=== PATIENT | female | born 1975 | race African-American/Black ===

== ENCOUNTER 2017-02-21 08:00 | Outpatient (CLI) | payer OTHER | END 2017-02-21 08:01 | disposition home or self-care (01) | LOC: BICMRI 08:00 | PROVIDERS: ATTEND Family Medicine | DX: M54.16 Radiculopathy, lumbar region (principal) | CPT/HCPCS: 72148 ==

== ENCOUNTER 2017-11-07 08:41 | Outpatient (CLI) | payer OTHER ==
[2017-11-07] MEDS ORDERED: ISOVUE-370 76%-LOCM 1 ML ONE (12:03)
--- NOTE | 2017-11-07 12:30 | CT ---
CONTRAST ENHANCED CT IMAGES ABDOMEN AND PELVIS: HISTORY: Previous cholecystectomy in July, right upper quadrant pain and nausea. FINDINGS: Contrast-enhanced CT images of the abdomen and pelvis obtained. The lung bases are unremarkable. No evidence of free intraperitoneal air is seen. The liver and spleen are unremarkable. The gallbladder has been surgically removed. The pancreas is unremarkable. Adrenal glands unremarkable. The kidneys are unremarkable. No dilated loops of smal l bowel seen. The colon demonstrates some areas of sigmoid colonic thickening. This may represent diverticulitis o r possible sigmoid colonic mass. Correlate with direct visualization. Bilateral ovarian cyst or cystic lesions also present. IMPRESSION: Segment of sigmoid colonic thickening concerning for diverticulitis or colitis or colonic malignancy. Correlate with direct visualization. POS: ADAM
== END 2017-11-07 08:42 | disposition home or self-care (01) ==
LOC: BICCT 08:41
PROVIDERS: ATTEND Family Medicine
DX: R10.11 Right upper quadrant pain (principal); K63.89 Other specified diseases of intestine
CPT/HCPCS: 74177

== ENCOUNTER 2018-07-20 16:12 | Inpatient (IN) | payer OTHER ==
[2018-07-20 17:42] LABS: Hemoglobin 10.5 g/dL (12.0-16.0); Mean Corpuscular HGB CONC 30.3 g/dL (32.0-36.0); Mean Corpuscular Hemoglobin 20.2 pg (27.0-31.0); Mean Corpuscular Volume 66.5 fL (78.0-98.0); Mean Platelet Volume 10.3 fL (7.4-10.4); Platelet Count 493 thou/uL (130-400); RBC Distribution Width 18.7 % (11.5-14.5); Red Blood Cell (RBC) Count 5.23 mill/uL (4.20-5.40); White Blood Cell (WBC) Count 10.3 thou/uL (4.8-10.8)
[2018-07-20 17:43] LABS: Bilirubin Small (Negative); Blood, Urine Negative (Negative); Clarity CLEAR (Clear); Glucose, Urine (Dipstick) Negative (Negative); Leukocyte Negative (Negative); Nitrite Negative (Negative); Protein, Urine (Dipstick) Negative (Neg-Trace); Specific Gravity, Urine 1.027 (1.002-1.036)
[2018-07-20 17:43] LABS: #Basophils 0.1 thou/uL (0.0-0.2); #Eosinphils 0.1 thou/uL (0.0-0.7); #Lymphocytes 2.6 thou/uL (1.20-3.40); #Monocytes 0.8 thou/uL (0.11-0.59); #Neutrophils 6.6 thou/uL (1.40-6.50); %Basophils 0.7 % (0.0-1.0); %Eosinophils 1.2 % (0.0-10.0); %Lymphocytes 25.6 % (21.0-51.0); %Neutrophils 64.4 % (42.0-75.0)
[2018-07-20 17:47] LABS: Pregnancy Test - Urine (BHCG) Negative (Negative); Pregu Control Background? CLEAR/WHITE (CLR/WHITE); Pregu Control Bar Appear? YES (CONTROL BAR); Specific Gravity 1.027 (1.002-1.036)
[2018-07-20 18:00] LABS: Hypochromia MODERATE=16-30 cells (100X) (0-5/hpf); MDiff Complete? YES; Microcytosis SLIGHT = 6-15 cells (100X) (0-5/hpf); Ovalocytes SLIGHT = 2-5 cells (100X) (0-1/hpf); Platelet Morphology Comment Appears Increased; Polychromasia SLIGHT = 2-3 cells (100X) (0-2/hpf); Reflex for Review?? YES; Stomatocytes SLIGHT = 2-5 cells (100X) (0-1/hpf); Target Cells SLIGHT = 2-5 cells (100X) (0-1/hpf)
[2018-07-20 18:08] LABS: ALT (SGPT) 14 U/L (8-55); AST (SGOT) 14 U/L (5-34); Albumin 4.2 g/dL (3.5-5.0); Alkaline Phosphatase 53 U/L (40-150); Anion Gap 15 mmol/L (10-20); BUN (Urea Nitrogen) 8 mg/dL (7.0-18.7); Bilirubin, Total 0.8 mg/dL (0.2-1.2); Calc. Creatinine Clearance 0 mL/min (70-130); Calcium 9.9 mg/dL (7.8-10.44); Carbon Dioxide 20 mmol/L (22-29); Chloride 104 mmol/L (98-107); Estimated GFR-MDRD Greater than 90; Globulin 3.8 g/dL (2.4-3.5); Glucose 89 mg/dL (70-105); Lipase 64 U/L (8-78); Potassium 3.7 mmol/L (3.5-5.1); Sodium 135 mmol/L (136-145)
--- NOTE | 2018-07-20 18:18 | CT ---
CT Stone Protocol 07/20/2018 5:09 PM HISTORY: Constipation for one week. History of diverticulitis. COMPARISON: Prior contrasted CT abdomen and pelvis on 11/07/2017. Technique: Multiple contiguous axial CT images are obtained through the abdomen and pelvis without IV contrast. Coronal reformats are provided. FINDINGS: This examination is limited for the evaluation of solid organs and vascular structures due to the lac k of intravenous contrast. Lower Chest: within normal limits. Abdomen: Liver: within normal limits. Gallbladder: Postcholecystectomy changes. Pancreas: within normal limits. Spleen: within normal limits. Adrenals: within normal limits. Kidneys: No renal calculi are visualized, and there is no evidence of hydronephrosis. Ureters: No ureteral calculus is seen.. Pelvis: Urinary bladder: Decompressed. Reproductive Organs: Grossly within normal limits for nonenhanced CT appearance. Lymph Nodes: No enlarged lymph nodes. Bowel: There is focal thickening involving the sigmoid colon. There are several colonic diverticuli s een in this region with adjacent pericolonic inflammatory changes. Findings are likely related to diverticulitis, but follow-up evaluation is recommended to ensure resolution of the colonic wall thic kening. Additional scattered colonic diverticula are seen within the colon. Appendix: Not visualized on this exam. Peritoneum: Tiny amount of free fluid is seen in the pelvis. Retroperitoneum: within normal limits. Vessels: Abdominal aorta is normal in caliber.. Abdominal Wall: within normal limits. Bones: Postsurgical changes of each femur are again noted. Mild degenerative changes in the spine are present. IMPRESSION: 1. Findings likely attributable to diverticulitis involving the sigmoid colon. However, this is diffi cult to further evaluate without IV contrast. Follow-up evaluation is recommended to ensure resolution of the colonic wall thickening and pericolonic inflammatory changes in this region. No adj acent free intraperitoneal gas or fluid collection is seen. 2. Tiny amount of free fluid in the pelvis. 3. Postcholecystectomy changes.
[2018-07-20] MEDS ORDERED: Morphine 4 MG/ML VIAL ONE ×2 (20:20→21:10)
[2018-07-20] MEDS ORDERED: metroNIDAZOLE 500 MG/100 ML BAG ONE (20:20)
[2018-07-20] MEDS ORDERED: Ondansetron PF 4 MG/2 ML Vial ONE (20:20)
[2018-07-20] MEDS ORDERED: Ondansetron ODT 4 MG TAB SL PRN (22:57)
[2018-07-20] MEDS: Morphine 4 MG/ML VIAL SLOW IVP PRN (23:10)
[2018-07-20] MEDS: Sodium Chloride 0.9% 1,000 ML IV SCH (23:12)
[2018-07-21] MEDS ORDERED: FLUoxetine HCl 10 MG CAP PO SCH (00:30)
[2018-07-21] MEDS: Ondansetron PF 4 MG/2 ML Vial IVP PRN ×2 (00:56→06:28)
[2018-07-21] MEDS ORDERED: metroNIDAZOLE 500 MG in Premix Bag 1 BAG IVPB SCH ×2 (04:00→10:00)
[2018-07-21] MEDS: Sodium Chloride 0.9% 1,000 ML IV SCH ×2 (06:20→10:24)
[2018-07-21] MEDS: Morphine 4 MG/ML VIAL SLOW IVP PRN ×3 (06:24→21:22)
[2018-07-21] MEDS ORDERED: Acetaminophen 325 MG TAB PO PRN (08:28)
[2018-07-21] MEDS ORDERED: Non-Formulary Item 1 EACH (Omeprazole [Omeprazole] 20 MG) PO SCH (09:00)
[2018-07-21] MEDS: Enoxaparin Sodium 40 MG/0.4 ML SYRINGE SC SCH (09:48)
[2018-07-21] MEDS ORDERED: traMADol HCl 50 MG TAB PO PRN (11:14)
[2018-07-21] MEDS ORDERED: Bisacodyl 5 MG TAB PO SCH (11:15)
[2018-07-21] MEDS: HYDROcodone/Acetaminophen 5/325 mg Tablet PO PRN (12:43)
[2018-07-21] MEDS: FLUoxetine HCl 10 MG CAP PO SCH (13:11)
[2018-07-21] MEDS: Loratadine 10 MG TAB PO SCH (13:11)
[2018-07-21] MEDS: metroNIDAZOLE 500 MG in Premix Bag 1 BAG IVPB SCH ×2 (14:39→21:23)
[2018-07-21 14:46] VITALS: BMI 41.3
[2018-07-21 15:51] LABS: Reticulocyte Count 1.6 % (0.5-1.5)
[2018-07-21 16:07] LABS: Iron 18 ug/dL (50-170); Iron Binding Capacity, Total 446 mcg/dL (265-497)
--- NOTE | 2018-07-21 17:06 | HP ---
CHIEF COMPLAINT: Nausea, vomiting, and abdominal pain. HISTORY OF PRESENT ILLNESS: The patient is a 42-year-old female with past medical history of depression, who presents to the hospital with complaints of abdominal pain x2 days. The patient stated that since she has had her gallbladder removed, which was sometimes last year, she has been having issues with constipation. The patient stated that her last bowel movement was about a week ago. The patient states that she has been passing gas. However, on July 16, started having significant amounts of abdominal pain. The patient then stated that since she is school, she did not want to miss her exams, so she took [id number] medications to help her abdominal pain. The patient also states that she took 2 packets of her MiraLAX and also took 2 Senokot hoping that her abdominal pain would improve or she would have a bowel movement. However, the patient states that the reason she came into the hospital, she started to have nausea, vomiting, and she was unable to hold anything down. The patient denies any fevers or chills. When the patient had diverticulosis last time, her symptoms were similar to her current presentation, so she came to the ER for further evaluation. She was last time asked to follow up with GI, which she did not due to being dizzy at school. PAST MEDICAL HISTORY: She has a history of allergies, depression, GERD, and also constipation. PAST SURGICAL HISTORY: She has had cholecystectomy. SOCIAL HISTORY: She smokes half a pack a day. Denies any alcohol use or drug use. REVIEW OF SYSTEMS: All negative except for the ones mentioned above in the HPI. FAMILY HISTORY: Significant for cancer on both sides. ALLERGIES: SHE IS ALLERGIC TO ACETAMINOPHEN, DOXYCYCLINE, HYDROCODONE, AND IBUPROFEN. MEDICATIONS: She takes, 1. Fluoxetine. 2. Claritin. PHYSICAL EXAMINATION: VITAL SIGNS: Temperature of 98.7, pulse 76, respiratory rate 18, oxygen saturation 98% on room air, and blood pressure 121/61. GENERAL: She is awake, alert, and oriented x3. Does not appear in any distress. CARDIOVASCULAR: S1 and S2 present. No murmurs, rubs, or gallops. LUNGS: Clear to auscultation. No rhonchi or wheezes noted. ABDOMEN: Soft. Bowel sounds are present x2. Pain upon palpation all around her abdomen area. EXTREMITIES: No edema. Pedal pulses are present x2. NEUROVASCULAR: There are no focal deficits noted. SKIN: No cuts, lesions, or bruises noted. LABORATORY RESULTS: WBCs of 10.3, hemoglobin of 10.5, hematocrit of 34.8, and platelets of 493. Chemistries; sodium of 135, potassium of 3.7, BUN of 8, and creatinine of 0.74. TSH is 0.8. She did have a CT of abdomen and pelvis, which indicated diverticulitis involving the sigmoid colon, however, there was no IV contrast that was used. She also recommended a followup scan to see the resolution of colonic wall thickening. ASSESSMENT AND PLAN: The patient is a 42-year-old female, who presents to the hospital with abdominal pain and nausea and vomiting. 1. Diverticulitis. The patient does not have significant leukocytosis. I will start her on Cipro and Flagyl. She has that diverticulitis in the past. However, never followed up with GI. According to her, she does eat a healthy diet and feels that her constipation has been since she has had a cholecystectomy. Her TSH is stable. I did encourage her to eat more high-fiber diet. She does have significant amount of diverticulosis in her colon and she has not had any bowel movement for about a week. I will also start her on some stool softeners and also we will give her some stimulants to see if she can have a bowel movement. I will also start her on some gentle hydration and put her on clear liquids and advance as tolerated. 2. Anemia, microcytic. I will check her iron studies. 3. Deep venous thrombosis prophylaxis. We will put the patient on some SCDs. Job ID: [id number]
[2018-07-22] MEDS: HYDROcodone/Acetaminophen 5/325 mg Tablet PO PRN ×2 (04:14→10:42)
[2018-07-22] MEDS: Sodium Chloride 0.9% 1,000 ML IV SCH (04:15)
[2018-07-22] MEDS: metroNIDAZOLE 500 MG in Premix Bag 1 BAG IVPB SCH ×3 (05:19→23:57)
[2018-07-22] MEDS: Loratadine 10 MG TAB PO SCH (05:22)
[2018-07-22 06:28] LABS: Hemoglobin 8.7 g/dL (12.0-16.0); Mean Corpuscular HGB CONC 29.7 g/dL (32.0-36.0); Mean Corpuscular Hemoglobin 20.2 pg (27.0-31.0); Mean Platelet Volume 10.1 fL (7.4-10.4); Platelet Count 384 thou/uL (130-400); RBC Distribution Width 18.6 % (11.5-14.5); Red Blood Cell (RBC) Count 4.32 mill/uL (4.20-5.40); White Blood Cell (WBC) Count 7.8 thou/uL (4.8-10.8)
[2018-07-22 06:34] LABS: Anion Gap 12 mmol/L (10-20); BUN (Urea Nitrogen) 5 mg/dL (7.0-18.7); Calc. Creatinine Clearance 207 mL/min (70-130); Calcium 8.4 mg/dL (7.8-10.44); Carbon Dioxide 23 mmol/L (22-29); Chloride 104 mmol/L (98-107); Estimated GFR-MDRD Greater than 90; Glucose 99 mg/dL (70-105); Potassium 3.3 mmol/L (3.5-5.1); Sodium 136 mmol/L (136-145)
[2018-07-22 06:50] LABS: #Eosinphils 0.1 thou/uL (0.0-0.7); #Lymphocytes 1.8 thou/uL (1.20-3.40); #Monocytes 0.7 thou/uL (0.11-0.59); #Neutrophils 5.2 thou/uL (1.40-6.50); %Basophils 0.5 % (0.0-1.0); %Eosinophils 1.6 % (0.0-10.0); %Lymphocytes 22.8 % (21.0-51.0); %Monocytes 8.5 % (0.0-10.0); %Neutrophils 66.6 % (42.0-75.0)
[2018-07-22] MEDS: FLUoxetine HCl 10 MG CAP PO SCH (08:19)
[2018-07-22] MEDS: Pantoprazole 40 MG VIAL IVP SCH (08:19)
[2018-07-22] MEDS: Enoxaparin Sodium 40 MG/0.4 ML SYRINGE SC SCH (08:19)
[2018-07-22] MEDS ORDERED: Potassium Chloride 20 MEQ TAB PO SCH (08:45)
[2018-07-22] MEDS ORDERED: Acetaminophen 325 MG TAB PO PRN (17:42)
--- NOTE | 2018-07-22 20:11 | PDOC.PN ---
- Subjective Encounter Start Date: 07/22/18 Encounter Start Time: 11:45 Subjective: pt up in bed feels much better today - Objective Resuscitation Status - Order Detail: 07/21/18 08:28 Resuscitation Status Routine Resuscitation Status: FULL: Full Resuscitation Vital Signs & Weight: Vital Signs (12 hours) Temp Pulse Resp BP BP Pulse Ox 07/22/18 16:20 97.9 F 75 18 111/74 98 07/22/18 12:32 98.1 F 75 18 125/79 98 Weight Admit Weight 279 lb 15.793 oz Weight 279 lb 15.793 oz I&O: 07/21/18 07/22/18 07/23/18 06:59 06:59 06:59 Intake Total 1050 1280 Balance 1050 1280 Result Diagrams: 07/22/18 05:46 07/22/18 05:46 Phys Exam - Physical Examination Neck: no nodes, no JVD, supple, full ROM Respiratory: no wheezing, no rales, no rhonchi, wheezing present, clear to auscultation bilateral Cardiovascular: RRR, no significant murmur, no rub, gallop, irregular Gastrointestinal: soft, non-tender, no distention, positive bowel sounds Dx/Plan (1) Diverticulitis Code(s): K57.92 - DVTRCLI OF INTEST, PART UNSP, W/O PERF OR ABSCESS W/O BLEED Status: Acute (2) Nausea & vomiting Code(s): R11.2 - NAUSEA WITH VOMITING, UNSPECIFIED Status: Acute (3) Obesity Code(s): E66.9 - OBESITY, UNSPECIFIED Status: Acute - Plan pt had a large bowel movement -: she feels better. will continue abx for now * . Review of Systems - Review of Systems Respiratory: negative: Cough, Dry, Shortness of Breath, Hemoptysis, SOB with Excertion, Pleuritic Pain, Sputum, Wheezing Cardiovascular: negative: chest pain, palpitations, orthopnea, paroxysmal nocturnal dyspnea, edema, light headedness, other - Medications/Allergies Allergies/Adverse Reactions: Allergies Allergy/AdvReac Type Severity Reaction Status Date / Time acetaminophen [From Vicodin] Allergy Verified 07/20/18 22:58 doxycycline Allergy Verified 07/20/18 22:58 hydrocodone bitartrate Allergy Verified 07/20/18 22:58 [From Vicodin] ibuprofen Allergy Verified 07/20/18 22:58 Medications: Current Medications Acetaminophen (Tylenol) 650 mg PO Q6H PRN PRN Reason: Headache/Fever or Pain Hydrocodone Bitart/Acetaminophen ([place] 5/325) 1 tab PO Q6H PRN PRN Reason: Mild-Moderate Pain (1-5) Last Admin: 07/22/18 10:42 Dose: 1 tab Enoxaparin Sodium (Lovenox) 40 mg SC 0900 [facility] Last Admin: 07/22/18 08:19 Dose: 40 mg Fluoxetine HCl (Prozac) 10 mg PO DAILY [facility] Last Admin: 07/22/18 08:19 Dose: 10 mg Sodium Chloride (Normal Saline 0.9%) 1,000 mls @ 50 mls/hr IV .Q20H [facility] Last Admin: 07/22/18 04:15 Dose: 1,000 mls Ciprofloxacin/Dextrose 400 mg/ (Device) 200 mls @ 200 mls/hr IVPB Q12HR [facility] Last Admin: 07/22/18 08:18 Dose: 200 mls Metronidazole 500 mg/ Device 100 mls @ 100 mls/hr IVPB 0600,1400,2200 [facility] Last Admin: 07/22/18 14:17 Dose: 100 mls Loratadine (Claritin) 10 mg PO DAILY [facility] Last Admin: 07/22/18 05:22 Dose: 10 mg Morphine Sulfate (Morphine) 2 mg SLOW IVP Q6H PRN PRN Reason: Mild-Moderate Pain (1-5) Last Admin: 07/21/18 21:22 Dose: 2 mg Pantoprazole Sodium (Protonix) 40 mg IVP DAILY [facility] Last Admin: 07/22/18 08:19 Dose: 40 mg Sodium Chloride (Flush - Normal Saline) 10 ml IVF PRN PRN PRN Reason: Saline Flush
[2018-07-23] MEDS: Ciprofloxacin 500 MG TAB PO SCH ×3 (00:25→23:45)
[2018-07-23] MEDS: metroNIDAZOLE 500 MG TAB PO SCH ×3 (08:19→20:17)
[2018-07-23] MEDS: Enoxaparin Sodium 40 MG/0.4 ML SYRINGE SC SCH (08:19)
[2018-07-23] MEDS: Loratadine 10 MG TAB PO SCH (08:19)
[2018-07-23] MEDS: FLUoxetine HCl 10 MG CAP PO SCH (08:19)
[2018-07-23] MEDS: Pantoprazole 40 MG VIAL IVP SCH (08:22)
[2018-07-23] MEDS: HYDROcodone/Acetaminophen 5/325 mg Tablet PO PRN ×2 (10:57→15:39)
--- NOTE | 2018-07-23 11:33 | CON ---
DATE OF CONSULTATION: 07/22/2018 REASON FOR CONSULTATION: Abdominal pain. HISTORY OF PRESENT ILLNESS: Mrs. Carballo is a 42-year-old female who was admitted to the hospital with a 4-to 5-day history of persistent abdominal pain. The pain initially started in the lower abdomen, but gradually has been involving the entire abdomen, but still localized in the lower part below the umbilicus. She did have some initial nausea, but no vomiting. She denies of any fever at home. She initially did have some constipation and took some MiraLAX and Senokot to achieve bowel movement. Because of the unrelenting and persistent pain, she presents to the ER for evaluation. A CT performed demonstrated evidence of sigmoid inflammation and pericolonic inflammation in that area suggestive of diverticulitis. She had similar bouts of pain last year in [place], but apparently was a gallbladder issue that resulted in a cholecystectomy. PAST MEDICAL HISTORY: 1. Status post cholecystectomy. 2. No other medical illness or surgery. ALLERGIES: DOXYCYCLINE, HYDROCODONE, IBUPROFEN, ACETAMINOPHEN. MEDICATIONS: Include; 1. Claritin. 2. Fluoxetine. SOCIAL HISTORY: The patient has a son currently in school. She does smoke a pack every 2 days and occasional alcohol. FAMILY HISTORY: Father with diverticulitis. Otherwise negative for any other GI problem, liver disease, or GI malignancy. REVIEW OF SYSTEMS: Ten-point review of systems negative for any other pertinent positives or negatives. PHYSICAL EXAMINATION: VITAL SIGNS: Temperature is 97.9, blood pressure 111/74, pulse is 75. GENERAL: She is alert, conversant, no distress. HEENT: Show anicteric sclerae. Oropharynx is clear. NECK: Supple. CV: Shows normal S1, S2. Regular rate and rhythm. CHEST: Shows a breath sound. ABDOMEN: Protuberant. Organomegaly cannot be assessed secondary to size. She does have tenderness below the umbilicus and also in the left lower quadrant. No guarding or rebound. She has active bowel sounds. EXTREMITIES: Show no edema. LABORATORY DATA: WBC 7.8, hemoglobin 8.7, MCV of 68, and platelet count of 384. Electrolytes within normal range. Creatinine 0.71. Iron 18, TIBC 446, percent saturation is 4. IMAGING: Abdomen and pelvic CT showed evidence of sigmoid inflammation with pericolonic inflammation with diverticula. No abscess, fluid collection, or phlegmon. ASSESSMENT: 1. Uncomplicated diverticulitis, clinically resolving with less pain. Currently on appropriate antibiotics. 2. Microcytic anemia with evidence of iron deficiency. Likely from menses. Dietary component may be a contributing factor as the patient has been on a diet for the last 5 months. No evidence of gastrointestinal blood loss. RECOMMENDATION: 1. Continue with Cipro and metronidazole IV. 2. The patient tolerates full liquid diet today, can be advanced to regular diet. If she continues to do well, can be discharged to home in 1 to 2 days on oral Cipro and metronidazole x10 days. 3. Follow up outpatient in 2 to 3 weeks. Eventual colonoscopy will be planned once her diverticulitis resolved. 4. We will start oral iron supplement once her diverticulitis resolved. 5. We will follow in the meantime. Job ID: [id number] [facility]
--- NOTE | 2018-07-23 13:05 | PRG ---
DATE OF SERVICE: 07/23/2018 SUBJECTIVE: The patient feels better today. She rated her abdominal pain as 6/10 relative to 10/10 on admission. She is tolerating regular diet without nausea or vomiting. She did have a small bowel movement this morning. OBJECTIVE: VITAL SIGNS: Temperature is 98.3, blood pressure 106/71, and pulse is 74. GENERAL: She is alert and conversant, no distress. HEENT: Exam shows anicteric sclerae. Oropharynx clear. CV: Shows normal S1 and S2. Regular rate and rhythm. CHEST: Shows a breath sound. ABDOMEN: Protuberant, but soft. braiding machine tender below the umbilicus. No guarding or rebound. EXTREMITIES: Shows no edema. LABORATORY DATA: No labs today. ASSESSMENT: 1. Uncomplicated diverticulitis, clinically better. 2. Microcytic anemia, likely related to her menstruation. The patient has noted more menses in the last 2 months. RECOMMENDATION: 1. I would continue to keep patient one more day on IV antibiotics, anticipate discharge tomorrow on oral Cipro and metronidazole. 2. Eventual outpatient colonoscopy. 3. We will check some iron parameters. Would avoid oral iron for now as this can be constipating. Can use iron supplement after diverticulitis resolves. 4. We will follow. Job ID: [id number]
--- NOTE | 2018-07-23 14:04 | PDOC.PN ---
- Subjective Encounter Start Date: 07/23/18 Encounter Start Time: 10:15 Subjective: pt up in bed complains of abd pain - Objective Resuscitation Status - Order Detail: 07/21/18 08:28 Resuscitation Status Routine Resuscitation Status: FULL: Full Resuscitation Vital Signs & Weight: Vital Signs (12 hours) Temp Pulse Resp BP BP Pulse Ox 07/23/18 07:29 98.3 F 74 16 106/71 96 07/23/18 04:00 98.2 F 80 18 118/75 99 Weight Admit Weight 279 lb 15.793 oz Weight 279 lb 15.793 oz I&O: 07/22/18 07/23/18 07/24/18 06:59 06:59 06:59 Intake Total 1280 Balance 1280 Result Diagrams: 07/22/18 05:46 07/22/18 05:46 Phys Exam - Physical Examination Neck: no nodes, no JVD, supple, full ROM Respiratory: no wheezing, no rales, no rhonchi, wheezing present, clear to auscultation bilateral Cardiovascular: RRR, no significant murmur, no rub, gallop, irregular Gastrointestinal: soft, positive bowel sounds mild tenderness all over Dx/Plan (1) Diverticulitis Code(s): K57.92 - DVTRCLI OF INTEST, PART UNSP, W/O PERF OR ABSCESS W/O BLEED Status: Acute (2) Nausea & vomiting Code(s): R11.2 - NAUSEA WITH VOMITING, UNSPECIFIED Status: Acute (3) Obesity Code(s): E66.9 - OBESITY, UNSPECIFIED Status: Acute - Plan will give iv iron, pt is a hard stick abx change to oral -: possible discharge in am * . Review of Systems - Review of Systems Respiratory: negative: Cough, Dry, Shortness of Breath, Hemoptysis, SOB with Excertion, Pleuritic Pain, Sputum, Wheezing Cardiovascular: negative: chest pain, palpitations, orthopnea, paroxysmal nocturnal dyspnea, edema, light headedness, other Gastrointestinal: Abdominal Pain - Medications/Allergies Allergies/Adverse Reactions: Allergies Allergy/AdvReac Type Severity Reaction Status Date / Time acetaminophen [From Vicodin] Allergy Verified 07/20/18 22:58 doxycycline Allergy Verified 07/20/18 22:58 hydrocodone bitartrate Allergy Verified 07/20/18 22:58 [From Vicodin] ibuprofen Allergy Verified 07/20/18 22:58 Medications: Current Medications Acetaminophen (Tylenol) 650 mg PO Q6H PRN PRN Reason: Headache/Fever or Pain Last Admin: 07/23/18 04:30 Dose: 650 mg Hydrocodone Bitart/Acetaminophen ([place] 5/325) 1 tab PO Q6H PRN PRN Reason: Mild-Moderate Pain (1-5) Last Admin: 07/23/18 10:57 Dose: 1 tab Ciprofloxacin (Cipro) 500 mg PO Q12H [facility] Last Admin: 07/23/18 10:56 Dose: 500 mg Enoxaparin Sodium (Lovenox) 40 mg SC 0900 [facility] Last Admin: 07/23/18 08:19 Dose: 40 mg Fluoxetine HCl (Prozac) 10 mg PO DAILY [facility] Last Admin: 07/23/18 08:19 Dose: 10 mg Iron Sucrose 200 mg/ Sodium (Chloride) 260 mls @ 125 mls/hr IVPB ONE [facility] Loratadine (Claritin) 10 mg PO DAILY [facility] Last Admin: 07/23/18 08:19 Dose: 10 mg Metronidazole (Flagyl) 500 mg PO TID [facility] Last Admin: 07/23/18 08:19 Dose: 500 mg Morphine Sulfate (Morphine) 2 mg SLOW IVP Q6H PRN PRN Reason: Mild-Moderate Pain (1-5) Last Admin: 07/21/18 21:22 Dose: 2 mg Naproxen (Naprosyn) 500 mg PO BID PRN PRN Reason: Mild-Moderate Pain (1-5) Pantoprazole Sodium (Protonix) 40 mg PO DAILY [facility] Sodium Chloride (Flush - Normal Saline) 10 ml IVF PRN PRN PRN Reason: Saline Flush
[2018-07-23] MEDS ORDERED: Iron Sucrose Complex 200 MG in Sodium Chloride 0.9% 250 ML 250 ML IVPB SCH (14:15)
[2018-07-23] MEDS ORDERED: Iron, Sodium Ferric Gluconate 250 MG in Sodium Chloride 0.9% 100 ML IVPB SCH (14:30)
[2018-07-23] MEDS: Naproxen 500 MG TAB PO PRN (20:17)
[2018-07-24 05:45] LABS: Hemoglobin 9.1 g/dL (12.0-16.0); Mean Corpuscular HGB CONC 30.2 g/dL (32.0-36.0); Mean Corpuscular Hemoglobin 20.4 pg (27.0-31.0); Mean Corpuscular Volume 67.8 fL (78.0-98.0); Platelet Count 403 thou/uL (130-400); RBC Distribution Width 18.8 % (11.5-14.5); Red Blood Cell (RBC) Count 4.44 mill/uL (4.20-5.40); White Blood Cell (WBC) Count 7.2 thou/uL (4.8-10.8)
[2018-07-24 06:03] LABS: Iron 11 ug/dL (50-170); Iron Binding Capacity, Total 361 mcg/dL (265-497)
[2018-07-24 07:40] VITALS: BP 110/75; TEMP 98.2
[2018-07-24] MEDS: Loratadine 10 MG TAB PO SCH (08:29)
[2018-07-24] MEDS: FLUoxetine HCl 10 MG CAP PO SCH (08:29)
[2018-07-24] MEDS: metroNIDAZOLE 500 MG TAB PO SCH (08:29)
[2018-07-24] MEDS: Enoxaparin Sodium 40 MG/0.4 ML SYRINGE SC SCH (08:29)
[2018-07-24] MEDS: Naproxen 500 MG TAB PO PRN (09:53)
[2018-07-24] MEDS: Ciprofloxacin 500 MG TAB PO SCH (12:56)
== END 2018-07-24 13:49 | disposition home or self-care (01) | DRG 392 ==
LOC: ERS 16:12 → 3SE 22:53 → T4-A 07-21 17:33
PROVIDERS: ADMIT Internal Medicine; ATTEND Internal Medicine
DX: K57.92 Diverticulitis of intestine, part unspecified, without perforation or abscess without bleeding (principal); Z68.41 Body mass index [BMI] 40.0-44.9, adult; E66.9 Obesity, unspecified; F32.9 Major depressive disorder, single episode, unspecified; K21.9 Gastro-esophageal reflux disease without esophagitis; K59.00 Constipation, unspecified; D50.9 Iron deficiency anemia, unspecified; Z90.49 Acquired absence of other specified parts of digestive tract; Z88.8 Allergy status to other drugs, medicaments and biological substances; Z88.1 Allergy status to other antibiotic agents; Z88.6 Allergy status to analgesic agent; Z79.899 Other long term (current) drug therapy
CPT/HCPCS: 36415; 74176; 80048; 80053; 81003; 81025; 82728; 83540; 83550; 83690; 84443; 85025; 85027; 85046; 85060; 96365; 96367; 96375; 96376; J0744; J1650; J2270; J2405; J2916; J3490

== ENCOUNTER 2018-09-09 13:27 | Outpatient (CLI) | payer OTHER ==
--- NOTE | 2018-09-09 14:39 | ULT ---
Pelvic ultrasound: 09/09/2018 COMPARISON: None HISTORY: Excessive bleeding TECHNIQUE: Multiplanar grayscale sonographic imaging of the pelvis obtained with transabdominal and e ndovaginal imaging. Doppler assessment of the left ovary performed with color flow and spectral analysis. Findings: The right ovary could not be visualized on this exam. The uterus measures 8.0 x 3.7 x 4.1 cm. No uterine mass is identified. The endometrial stripe measure s 3 mm, within normal limits. No free pelvic fluid is seen. Left ovary measures 1.6 x 1.8 x 1.8 cm in demonstrates normal blood flow without evidence for mass. IMPRESSION: Unremarkable pelvic ultrasound. The right ovary could not be visualized on this exam.
--- NOTE | 2018-09-09 15:54 | MMO ---
Bilateral MAMMO Bilat Screen [facility]. CLINICAL HISTORY: Patient is 42 years old and is seen for screening. The patient has no family history of breast cancer. The patient has no personal history of cancer. VIEWS: The views performed were: bilateral mediolateral oblique with tomosynthesis; bilateral craniocaudal with tomosynthesis; bilateral mediolateral oblique; and left craniocaudal. MAMMOGRAM FINDINGS: There are scattered fibroglandular densities. There are no suspicious masses, suspicious calcifications, or new areas of architectural distortion. IMPRESSION: THERE IS NO MAMMOGRAPHIC EVIDENCE OF MALIGNANCY. A ROUTINE FOLLOW-UP MAMMOGRAM IN 1 YEAR IS RECOMMENDED. THE RESULTS OF THIS EXAM WERE SENT TO THE PATIENT. ACR BI-RADS Category 1 - Negative MAMMOGRAPHY NOTE: 1. A negative mammogram report should not delay a biopsy if a dominant of clinically suspicious mass is present. 2. Approximately 10% to 15% of breast cancers are not detected by mammography. 3. Adenosis and dense breasts may obscure an underlying neoplasm. Reported by: DANA CAT MD Electonically Signed: [id number]
== END 2018-09-09 13:28 | disposition home or self-care (01) ==
LOC: BICULT 13:27
PROVIDERS: ATTEND Family Medicine
DX: Z12.31 Encounter for screening mammogram for malignant neoplasm of breast (principal); N92.0 Excessive and frequent menstruation with regular cycle; N93.0 Postcoital and contact bleeding
CPT/HCPCS: 76856; 77063; 77067

== ENCOUNTER 2019-08-13 11:36 | Emergency (ER) | payer OTHER ==
[2019-08-13] MEDS ORDERED: Acetaminophen 500 MG TAB ONE (12:39)
--- NOTE | 2019-08-13 12:48 | RAD ---
RADIOGRAPH CHEST 1 VIEW: DATE: 08/13/2019 HISTORY: 43-year-old female status post acute chest trauma from fall FINDINGS: There are no airspace densities, pulmonary edema, pneumothorax, or cardiomegaly. The lateral costophr enic angles are sharp. IMPRESSION: No acute cardiopulmonary findings.
--- NOTE | 2019-08-13 14:13 | RAD ---
EXAM: 2 views of the left hip HISTORY: Left hip pain after falling in store COMPARISON: 08/13/2019 FINDINGS: 2 views of the left hip shows no evidence of acute fracture or dislocation. A screw is seen in the left proximal femur. No degenerative changes are seen. No soft tissue swelling is present. IMPRESSION: No evidence of acute osseous abnormality.
--- NOTE | 2019-08-13 14:20 | RAD ---
LEFT ELBOW TWO VEIWS: 08/13/19 HISTORY: Elbow pain status post fall. There is no signs of fracture, dislocation or joint effusion. IMPRESSION: Negative left elbow. POS: [facility]
--- NOTE | 2019-08-13 14:23 | RAD ---
RIGHT KNEE FOUR VIEWS: 08/13/19 HISTORY: Fall in store. There is no signs of fracture or dislocation. No joint effusion. IMPRESSION: Negative right knee. POS: [facility]
--- NOTE | 2019-08-13 14:57 | RAD ---
LEFT HIP TWO VIEWS: 08/13/19 HISTORY: Fall with injury. History of prior pinning of the hip. There are no comparison studies. A linear lucency runs across the femoral neck which is artifactual. On the lateral view, there is que stion of a coexisting fracture line. This is not definitely confirmed in the AP view. Mild degenerative changes at the hip. IMPRESSION: Question femoral neck fracture, although there is a linear artifact running across the femoral neck d ue to overlying pannus. Recommend repeating the left hip exam while having overlying pannus held out of the image. POS: [facility]
== END 2019-08-13 14:54 | disposition home or self-care (01) ==
LOC: ERS 11:36
DX: S80.01XA Contusion of right knee, initial encounter (principal); M25.552 Pain in left hip; M25.522 Pain in left elbow; F17.210 Nicotine dependence, cigarettes, uncomplicated; Z79.899 Other long term (current) drug therapy; V18.9XXA Unspecified pedal cyclist injured in noncollision transport accident in traffic accident, initial encounter
CPT/HCPCS: 71045

== ENCOUNTER 2019-10-20 15:09 | Outpatient (CLI) | payer OTHER ==
--- NOTE | 2019-10-20 16:21 | MMO ---
Bilateral MAMMO Bilat Screen [facility]. CLINICAL HISTORY: Patient is 43 years old and is seen for screening. The patient has no family history of breast cancer. The patient has no personal history of cancer. VIEWS: The views performed were: bilateral craniocaudal and bilateral mediolateral oblique. FILMS COMPARED: The present examination has been compared to a prior imaging study performed at [facility] on 09/09/2018. This study has been interpreted with the assistance of computer-aided detection. MAMMOGRAM FINDINGS: There are scattered fibroglandular densities. There are no suspicious masses, suspicious calcifications, or new areas of architectural distortion. IMPRESSION: THERE IS NO MAMMOGRAPHIC EVIDENCE OF MALIGNANCY. A ROUTINE FOLLOW-UP MAMMOGRAM IN 1 YEAR IS RECOMMENDED. ACR BI-RADS Category 1 - Negative MAMMOGRAPHY NOTE: 1. A negative mammogram report should not delay a biopsy if a dominant of clinically suspicious mass is present. 2. Approximately 10% to 15% of breast cancers are not detected by mammography. 3. Adenosis and dense breasts may obscure an underlying neoplasm. Reported by: DANA CAT MD Electonically Signed: [id number]
== END 2019-10-20 15:10 | disposition home or self-care (01) ==
LOC: BICMAMMO 15:09
PROVIDERS: ATTEND Family Medicine
DX: Z12.31 Encounter for screening mammogram for malignant neoplasm of breast (principal)
CPT/HCPCS: 77067

== ENCOUNTER 2020-03-20 09:47 | Day surgery (SDC) | payer OTHER ==
[2020-03-15 11:55] LABS: Hemoglobin 12.6 g/dL (12.0-16.0); Mean Corpuscular HGB CONC 31.2 G/DL (32.0-36.0); Mean Corpuscular Hemoglobin 23.3 PG (27.0-33.0); Mean Corpuscular Volume 74.8 fl (80.0-100.0); Mean Platelet Volume 9.8 fl (7.4-10.4); Platelet Count 380 10x3/uL (130-400); RBC Distribution Width 21.2 % (11.5-14.5); White Blood Cell (WBC) Count 6.6 10x3/uL (4.5-11.0)
[2020-03-15 12:05] LABS: BHCG - Serum Negative (NEGATIVE); Pregs Control Background? CLEAR/WHITE (CLR/WHITE); Pregs Control Bar Appear? YES (CONTROL BAR)
--- NOTE | 2020-03-15 19:48 | HP ---
Scheduled surgery date is 03/20/2020. HISTORY OF PRESENT ILLNESS: Ms. Carballo is a 44-year-old female who has had continued heavy menstrual bleeding with subsequent anemia. She also has very severe dysmenorrhea during her menstrual cycles. She has tried oral contraceptives in the past, which did not help. Of note, she is also a smoker and so oral contraceptive usages is not recommended. She has been treated with a course of antibiotics for possible endometritis due to the pelvic pain with no improvement. She has had recent endometrial biopsy after the vaginitis panel, pelvic ultrasound, which were all normal. She is up to date with the Pap smear and HPV testing in 2019, Pap showing ASCUS, but HPV was negative. She continues to be on iron therapy for iron-deficiency anemia. Most recent hematocrit was 29% by her PCP, Dr. Holloway. She has been offered IUD trial, but patient prefers to proceed with definitive therapy due to menorrhagia and dysmenorrhea. PAST MEDICAL HISTORY: She has some chronic back pain. She also has some allergic rhinitis, iron-deficiency anemia. PAST SURGICAL HISTORY: She reports having a cerclage placed in the past during her due to incompetent cervix. SOCIAL HISTORY: She is a cigarette smoker. Denies any excessive alcohol or illicit drug use. FAMILY HISTORY: Noncontributory. CURRENT MEDICATIONS: 1. Fluticasone propionate 50 mcg nasal spray one spray each nostril daily. 2. Integra iron capsule one a day orally. 3. . ALLERGIES: SHE HAD ALLERGIES TO DOXYCYCLINE, COCONUT PHYSICAL EXAMINATION: VITAL SIGNS: Her height is 5 feet 9 inches, weight 269 with a BMI of 39.7. Blood pressure 130/92, pulse 86, respirations 18, and O2 saturation on room air 98%. HEENT: Within normal limits. CHEST: Clear to auscultation. HEART: Regular rate and rhythm. S1, S2 heart sounds. No murmurs, rubs, or gallops. ABDOMEN: Soft and nontender. PELVIC: Vulva and vagina had no lesions. Cervix had no lesions. She did have some mild cervical motion tenderness. Uterus was midline, no masses. Did not appear enlarged. It was tender on exam. Adnexa were nontender with no masses. Endometrial biopsy, she did have a uterine sound to 8 cm. Transvaginal ultrasound performed on 01/17/2020 showed her uterus measuring 8.6 x 1.5 x 4.1 cm with a volume of 94.6 cm3. Endometrial thickness was normal at 5.9. The left and right ovaries appeared normal. ASSESSMENT: This is a 44-year-old female, with severe dysmenorrhea and menorrhagia and chronic pelvic pain with possible clinical adenomyosis and history of iron-deficiency anemia due to the menorrhagia. She is a smoker and has failed medical management trials. She desires definitive surgical therapy and we will proceed with robotic TLH with bilateral salpingectomy. Risks and benefits of procedure have been discussed in detail. Job ID: [id number]
[2020-03-15 23:32] LABS: SARS-CoV-2 PCR by NAA Not Detected (NotDetected)
[2020-03-16 10:17] VITALS: BMI 40.4
[~2020-03-20 09:47] MED LIST: Dexamethasone 20 MG/5 ML VIAL ONE; Lidocaine 1% PF 5 ML VIAL ONE; Metoclopramide HCl 10 MG/2 ML VIAL ONE; Ondansetron PF 4 MG/2 ML Vial ONE; PROPOFOL 200 MG/20 ML VIAL ONE; Rocuronium Bromide 10 MG/ML (10ML VIAL) ONE
[2020-03-20] MEDS ORDERED: CeleCOXIB 100 MG CAP ONE (09:52)
[2020-03-20] MEDS ORDERED: Famotidine/PF 20 mg/2ml Vial ONE (09:52)
[2020-03-20] MEDS ORDERED: Gabapentin 300 MG CAP ONE (09:52)
[2020-03-20] MEDS ORDERED: Fentanyl 100 MCG/2 ML VIAL ONE ×3 (09:53→12:45)
[2020-03-20] MEDS ORDERED: Meperidine HCl/PF 25 MG/ML VIAL ONE (09:53)
[2020-03-20] MEDS ORDERED: SUGAMMADEX SODIUM 200 MG/2 ML VIAL ONE (09:54)
[2020-03-20] MEDS ORDERED: Albuterol Sulfate HFA (OR ONLY) ONE (09:54)
[2020-03-20] MEDS ORDERED: EPINEPHrine 1 MG/ML AMP ONE (10:08)
[2020-03-20] MEDS ORDERED: Bupivacaine PF 0.5% 30 ML VIAL ONE (10:08)
[2020-03-20] MEDS ORDERED: Midazolam HCl 2 mg/2 ml Vial ONE (10:17)
[2020-03-20] MEDS ORDERED: Promethazine HCl 25 MG/ML VIAL ONE (13:15)
[2020-03-20] MEDS ORDERED: Morphine 2 MG/ML VIAL ONE (13:49)
[2020-03-20] MEDS ORDERED: HYDROcodone/Acetaminophen 5/325 mg Tablet ONE (15:15)
--- NOTE | 2020-03-20 22:36 | OP ---
DATE OF PROCEDURE: 03/20/2020 DIAGNOSES: A 44-year-old female with severe dysmenorrhea, menorrhagia, and chronic pelvic pain, desires definitive surgical therapy. POSTOPERATIVE DIAGNOSES: A 44-year-old female with severe dysmenorrhea, menorrhagia, and chronic pelvic pain, desires definitive surgical therapy, and probable adenomyosis of the uterus. PROCEDURES PERFORMED: Robotic total laparoscopic hysterectomy and bilateral salpingectomy. WOODWORKING MACHINE OPERATOR SURGEON: George Tena DO, MS ANESTHESIA: General endotracheal. ESTIMATED BLOOD LOSS: 25 mL. COMPLICATIONS: None. COUNTS: Correct x2. PATHOLOGY: Uterus, cervix, and bilateral fallopian tubes. FINDINGS: 1. Normal-appearing bilateral fallopian tubes and ovaries noted. 2. Uterus was somewhat boggy and slightly enlarged. 3. Clear urine present in Gordon catheter postprocedure and bladder was watertight to fluid distention postprocedure. 4. Bilateral ureteral peristalsis visualized postprocedure. 5. The patient with some perihepatic filmy adhesions noted in the upper abdomen and some inflammatory serosal surface changes on the sigmoid colon. The patient with history of prior diverticulitis. DISPOSITION: Recovery room, stable. DESCRIPTION OF PROCEDURE: The patient previously received informed consent in regard to surgery. She was taken back to the operating room, where she received a general endotracheal anesthetic agent without complications. She was placed in the dorsal lithotomy position with use of William stirrups. At this time, she was prepped and draped in usual sterile fashion. Gordon catheter was placed and a side-arm speculum was placed in the vagina. Using a single-tooth tenaculum, I grasped the anterior cervix and the uterus sounded to 8 cm. A size 8 cm RACHAEL uterine manipulator with a 4 cm cervical cup was placed, then the tenaculum and speculum were removed. Attention was then turned to the abdomen, where perspective trocar sites were infiltrated with 0.5% Marcaine with epinephrine. A 12 mm supraumbilical incision was made and Veress needle was entered into the peritoneal cavity. The patient's pressure was noted to be less than 5 mm and the abdomen was insufflated with patient pressure of 15 approximately 5 L of carbon dioxide gas. Veress needle was then removed. A size 12 mm trocar was then placed. We placed the laparoscope through the trocar sleeve confirming proper entry. The patient was placed in Trendelenburg position. Additional bilateral lower quadrant 8 mm trocars were placed under laparoscopic guidance along with a right upper quadrant 11 mm activity assistant port. I then broke scrub while the robot was docked in usual fashion. My assistants remained at the bedside. The uterus elevated from the pelvis. The left fallopian tube was grasped by my activity assistant and I proceeded to coagulate the mesosalpinx of the left fallopian tube and then transecting this area and excising the left fallopian tube with monopolar scissors. It was removed in the right upper quadrant port. The left uterine ovarian ligament was then coagulated and transected and serial coagulation of the broad ligament hugging close to uterus was carried out to the left round ligament was reached. It was coagulated and transected with monopolar scissors and the anterior leaf of the broad ligament was entered dissecting the vesicouterine peritoneum in a layering technique. The bladder was taken down atraumatically past the cervical vaginal margin and the left uterine vessels were skeletonized and coagulated with bipolar fenestrated cautery at the internal cervical os region. This was carried down in likewise fashion on the right with the right fallopian tube being coagulated the mesosalpinx and excised and removed in the right upper quadrant port. Again, the right uterine ovarian ligament was coagulated, transected, and serial coagulation of broad ligament hugging close to uterus again carried out till we reached the round ligament. It was coagulated and transected. Again, the anterior leaf of the broad ligament was entered dissecting the vesicouterine peritoneum in a layering technique and skeletonizing the right uterine arteries being and coagulating them again in the internal cervical os region. The bladder was felt to be adequately dissected past the cervical vaginal margin. The bladder was distended prior to the anterior colpotomy, confirming its position and safety from the anticipated anterior colpotomy site. It was noted to be very inferior, distal to the proposed colpotomy. The anterior colpotomy was then made with monopolar scissors starting at 12 o'clock to 3 o'clock and 12 to 9 o'clock. The vessels at the 3 o'clock and 9 o'clock position were further coagulated bipolar fenestrated cautery. The posterior colpotomy was completed from 6 to 3 and 6 to 9 o'clock. The uterine specimen was delivered into the vaginal vault. My monopolar scissors were then switched with a Pineda needle route salesman and driver. The vaginal cuff was then ran and cauterized in areas of bleeding with bipolar fenestrated cautery. My activity assistant then brought in a STRATAFIX suture and I closed the vaginal cuff full-thickness, closure starting at the right angle back to the left angle back towards the midline and right angle in a double-layer closure. Good hemostasis was confirmed. The needle and extra suture were then removed in the right upper quadrant port. We then irrigated all the pedicle sites, inspected them for hemostasis, which was confirmed. The bladder was draining clear urine. The bilateral ureteral peristalsis was visualized and the course of the ureters appeared to be inferior and lateral to the previous operative sites. We then undocked the robot. The trocars were then removed. I rescrubbed. A deep stitch of 0 Vicryl in a [id number] stitch fashion was placed in the fascial defect near the umbilicus. The remainder of the trocar sites were closed with 4-0 Monocryl subcuticular and Dermabond. I inspected the vaginal vault with a dry sponge stick and hemostasis in the vaginal vault was confirmed also. The patient was awakened from anesthesia, transferred to recovery room in stable condition. Job ID: [id number]
== END 2020-03-20 16:31 | disposition home or self-care (01) ==
LOC: SDC 09:47
PROVIDERS: ATTEND Obstetrics & Gynecology
PROC: 0UT74ZZ Resection of Bilateral Fallopian Tubes, Percutaneous Endoscopic Approach (ICD-10-PCS; principal; 2020-03-20)
PROC: 0UT94ZZ Resection of Uterus, Percutaneous Endoscopic Approach (ICD-10-PCS; principal; 2020-03-20)
DX: N80.0 Endometriosis of uterus (principal); N87.9 Dysplasia of cervix uteri, unspecified; N72 Inflammatory disease of cervix uteri; D50.9 Iron deficiency anemia, unspecified; G89.29 Other chronic pain; M54.9 Dorsalgia, unspecified; F17.210 Nicotine dependence, cigarettes, uncomplicated; Z79.899 Other long term (current) drug therapy; Z88.1 Allergy status to other antibiotic agents; Z88.5 Allergy status to narcotic agent; Z88.6 Allergy status to analgesic agent; Z91.018 Allergy to other foods
CPT/HCPCS: 84703; 85027; 86850; 86900; 86901; 87635; 88307; J0171; J0690; J1100; J2175; J2250; J2270; J2405; J2550; J2704; J2765; J3010; S0020; S0028; U0003; U0005

== ENCOUNTER 2020-03-29 17:11 | Emergency (ER) | payer OTHER ==
[~2020-03-29 17:11] MED LIST changes: -Dexamethasone 20 MG/5 ML VIAL ONE; +Iopamidol 370 76% 100 ML VIAL ONE; -Lidocaine 1% PF 5 ML VIAL ONE; -Metoclopramide HCl 10 MG/2 ML VIAL ONE; -Ondansetron PF 4 MG/2 ML Vial ONE; -PROPOFOL 200 MG/20 ML VIAL ONE; -Rocuronium Bromide 10 MG/ML (10ML VIAL) ONE
[2020-03-29 18:17] LABS: #Basophils 0.1 thou/uL (0.0-0.2); #Eosinphils 0.2 thou/uL (0.0-0.7); #Lymphocytes 4.2 thou/uL (1.20-3.40); #Monocytes 0.7 thou/uL (0.11-0.59); #Neutrophils 5.1 thou/uL (1.40-6.50); %Basophils 0.7 % (0.0-1.0); %Eosinophils 1.8 % (0.0-10.0); %Lymphocytes 40.8 % (21.0-51.0); %Monocytes 6.8 % (0.0-10.0); %Neutrophils 49.9 % (42.0-75.0); Hemoglobin 12.9 g/dL (12.0-16.0); Mean Corpuscular HGB CONC 31.4 g/dL (32.0-36.0); Mean Corpuscular Hemoglobin 24.2 pg (27.0-31.0); Mean Corpuscular Volume 77.1 fL (78.0-98.0); Mean Platelet Volume 9.2 fL (7.4-10.4); Platelet Count 426 thou/uL (130-400); RBC Distribution Width 18.4 % (11.5-14.5); Red Blood Cell (RBC) Count 5.34 mill/uL (4.20-5.40); White Blood Cell (WBC) Count 10.3 thou/uL (4.8-10.8)
[2020-03-29 18:36] LABS: ALT (SGPT) 13 U/L (8-55); AST (SGOT) 16 U/L (5-34); Alkaline Phosphatase 61 U/L (40-110); Anion Gap 15 mmol/L (10-20); BUN (Urea Nitrogen) 10 mg/dL (7.0-18.7); Bilirubin, Total 0.3 mg/dL (0.2-1.2); Calc. Creatinine Clearance 0 mL/min (70-130); Calcium 9.8 mg/dL (7.8-10.44); Carbon Dioxide 23 mmol/L (22-29); Chloride 104 mmol/L (98-107); Globulin 4.2 g/dL (2.4-3.5); Glucose 98 mg/dL (70-105); Protein, Total 8.2 g/dL (6.0-8.3); Sodium 138 mmol/L (136-145)
--- NOTE | 2020-03-29 18:54 | CT ---
CT of abdomen and pelvis: 03/29/2020 COMPARISON: 11/07/2017 HISTORY: Pain with voiding, partial hysterectomy 03/20/2020 TECHNIQUE: Axial CT imaging at 5 mm intervals from lung bases through pubic symphysis with IV contras t. Coronal and sagittal reformatted imaging obtained. FINDINGS: The visualized lung bases are unremarkable. No free intraperitoneal air. Cholecystectomy cl ips are present. The liver, spleen, pancreas, adrenal glands, and kidneys are unremarkable. Evaluation of the bowel is limited without oral contrast media. There are a few colonic diverticula i nvolving the distal descending colon and the sigmoid colon. There is mild wall prominence of the sigmoid colon which is similar when compared to the prior examination and may signify a mild degree o f colitis. Trace free fluid is noted in the pelvic cul-de-sac. There is a round low-density area within the left hemipelvis measuring 1.6 cm, suggesting a small cys t in the region of the left ovary. The uterus appears surgically absent. There is small volume fluid in the region of the vaginal cuff w ith no evidence for a drainable fluid collection/abscess. No evidence for bowel obstruction is noted. The urinary bladder is decompressed and is not optimally assessed on CT, especially secondary to stre ak artifact associated with screws within the proximal femur bilaterally. Review of the osseous structures demonstrates no acute findings. There are degenerative changes invol ving bilateral sacroiliac joints and the lower lumbar spine. Multilevel lower thoracic spine disc space narrowing and vacuum disc formation noted with no worrisome lytic or blastic bone lesion. IMPRESSION: Small volume free fluid within the pelvic cul-de-sac with no evidence for abscess. Mild wall thickening of the sigmoid colon which could signify inflammatory change/colitis or malignan cy. Recommend direct visualization via colonoscopy. CODE T
[2020-03-29 19:45] LABS: Bacteria/HPF 1+ HPF (None Seen); Bilirubin Negative (Negative); Blood, Urine Negative (Negative); Clarity Turbid (Clear); Glucose, Urine (Dipstick) Normal (Negative); Ketone, Urine Negative (Negative); Leukocyte 250 Leu/uL (Negative); Nitrite Negative (Negative); Protein, Urine (Dipstick) 20 mg/dL (Neg-Trace); RBC/HPF 0-3 HPF (0-3); Specific Gravity, Urine 1.031 (1.002-1.036); pH, Urine 5.5 (5.0-9.0)
[2020-03-29] MEDS ORDERED: Ondansetron PF 4 MG/2 ML Vial ONE (19:50)
[2020-03-29] MEDS ORDERED: Morphine 4 MG/ML VIAL ONE (19:50)
[2020-03-29] MEDS ORDERED: Amoxicillin/Potassium Clav 875 MG TAB ONE (21:05)
== END 2020-03-29 21:28 | disposition home or self-care (01) ==
LOC: ERS 17:11
DX: G89.18 Other acute postprocedural pain (principal); R10.9 Unspecified abdominal pain; K52.9 Noninfective gastroenteritis and colitis, unspecified; R11.0 Nausea; F17.210 Nicotine dependence, cigarettes, uncomplicated
CPT/HCPCS: 74177; 80053; 81003; 81015; 85025; 96374; 96375; J2270; J2405; Q9967

== ENCOUNTER 2021-08-17 09:22 | Outpatient (CLI) | payer OTHER | END 2021-08-17 09:23 | disposition home or self-care (01) | LOC: BICMRI 09:22 | PROVIDERS: ATTEND Orthopaedic Surgery | DX: Z12.31 Encounter for screening mammogram for malignant neoplasm of breast (principal); S83.102A Unspecified subluxation of left knee, initial encounter; M17.9 Osteoarthritis of knee, unspecified | CPT/HCPCS: 77067 ==

== ENCOUNTER 2021-09-10 12:49 | Outpatient (CLI) | payer OTHER ==
[2021-09-10 13:41] LABS: Hemoglobin 13.4 g/dL (12.0-15.5); Mean Corpuscular HGB CONC 32.4 g/dL (32.0-36.0); Mean Corpuscular Hemoglobin 25.9 pg (27.0-33.0); Mean Corpuscular Volume 79.7 fl (81.6-98.3); Mean Platelet Volume 10.2 fl (7.4-10.4); Platelet Count 347 10x3/uL (150-450); RBC Distribution Width 16.9 % (11.5-14.5); Red Blood Cell (RBC) Count 5.18 10x6/uL (3.90-5.03); White Blood Cell (WBC) Count 9.4 10x3/uL (3.5-10.5)
[2021-09-10 14:29] LABS: MDiff Complete? YES; Manual Diff?? YES
[2021-09-10 14:36] LABS: Eosinophils 2 % (0-10); Lymphocytes 59 % (21-51); Monocytes 8 % (0-10); Neutrophil 29 % (42-75); Reactive Lymphocytes 1 % (0-10)
[2021-09-10 14:37] LABS: Anisocytosis SLIGHT = 6-15 cells (100X) (0-5/hpf); Platelet Morphology Comment Appears Adequate
[2021-09-10 14:38] LABS: Elliptocytes SLIGHT = 2-5 cells (100X) (0-1/hpf); Hypochromia SLIGHT = 6-15 cells (100X) (0-5/hpf); Macrocytosis SLIGHT = 6-15 cells (100X) (0-5/hpf); Microcytosis SLIGHT = 6-15 cells (100X) (0-5/hpf); Stomatocytes SLIGHT = 2-5 cells (100X) (0-1/hpf); Target Cells SLIGHT = 2-5 cells (100X) (0-1/hpf)
== END 2021-09-10 12:50 | disposition home or self-care (01) ==
LOC: LABBT 12:49
PROVIDERS: ATTEND Orthopaedic Surgery
DX: Z01.812 Encounter for preprocedural laboratory examination (principal); M17.12 Unilateral primary osteoarthritis, left knee; M23.301 Other meniscus derangements, unspecified lateral meniscus, left knee; Z20.822 Contact with and (suspected) exposure to COVID-19
CPT/HCPCS: 85025; 87811

== ENCOUNTER 2021-09-13 06:57 | Day surgery (SDC) | payer OTHER ==
[2021-09-11 14:44] VITALS: BMI 39.7
[2021-09-13] MEDS ORDERED: PROPOFOL 0 ML ONE (08:17)
[2021-09-13] MEDS ORDERED: PROPOFOL 20 ML ONE (08:27)
[2021-09-13] MEDS ORDERED: Scopolamine 1.5 mg/72 hour Patch ONE (08:35)
[2021-09-13] MEDS ORDERED: CEFAZOLIN 2 GM VIAL ONE (08:50)
[2021-09-13] MEDS ORDERED: Sodium Chloride 0.9% 100 ML ONE (08:50)
[2021-09-13] MEDS ORDERED: fentaNYL Citrate/PF 100 MCG/2 ML SYRINGE ONE (09:00)
[2021-09-13] MEDS ORDERED: Propofol 500 MG/50 ML VIAL ONE (09:01)
[2021-09-13] MEDS ORDERED: Dexamethasone 20 MG/5 ML VIAL ONE (09:05)
[2021-09-13] MEDS ORDERED: Lidocaine 1% PF 5 ML VIAL ONE (09:05)
[2021-09-13] MEDS ORDERED: Lidocaine 2% w/Epinephrine 1:200K 20 ML VIAL ONE (09:05)
[2021-09-13] MEDS ORDERED: PROPOFOL 200 MG/20 ML VIAL ONE (09:05)
[2021-09-13] MEDS ORDERED: Bupivacaine HCl 0.5%/Epinephrine 1:200,000/PF 30 ml Vial ONE (09:05)
[2021-09-13] MEDS ORDERED: Ondansetron PF 4 MG/2 ML Vial ONE (09:05)
[2021-09-13] MEDS ORDERED: Midazolam HCl 2 mg/2 ml Vial ONE (09:14)
[2021-09-13] MEDS ORDERED: Lidocaine 1% (PF) 30 ML VIAL ONE (09:38)
== END 2021-09-13 12:37 | disposition home or self-care (01) ==
LOC: SDC 06:57
PROVIDERS: ATTEND Orthopaedic Surgery
PROC: 0SBD4ZZ Excision of Left Knee Joint, Percutaneous Endoscopic Approach (ICD-10-PCS; principal; 2021-09-13)
DX: S83.282A Other tear of lateral meniscus, current injury, left knee, initial encounter (principal); M23.8X2 Other internal derangements of left knee; M17.12 Unilateral primary osteoarthritis, left knee; E11.9 Type 2 diabetes mellitus without complications; I10 Essential (primary) hypertension; F17.290 Nicotine dependence, other tobacco product, uncomplicated; Z79.52 Long term (current) use of systemic steroids; Z79.899 Other long term (current) drug therapy; Z88.1 Allergy status to other antibiotic agents; Z88.6 Allergy status to analgesic agent; Z91.018 Allergy to other foods
CPT/HCPCS: J0690; J1100; J2001; J2250; J2405; J2704; J3490

== ENCOUNTER 2022-01-17 12:11 | Outpatient (CLI) | payer OTHER | END 2022-01-17 12:12 | disposition home or self-care (01) | LOC: SCSMRI 12:11 | PROVIDERS: ATTEND Orthopaedic Surgery | DX: M25.561 Pain in right knee (principal); G89.29 Other chronic pain; S83.241A Other tear of medial meniscus, current injury, right knee, initial encounter; M25.462 Effusion, left knee; M94.261 Chondromalacia, right knee; Q65.89 Other specified congenital deformities of hip ==

== ENCOUNTER 2022-02-07 06:48 | Day surgery (SDC) | payer BC, OTHER ==
[2022-02-06 09:11] VITALS: BMI 37.8
[2022-02-07] MEDS ORDERED: Lidocaine 1% MPF 2 ML VIAL ONE (07:34)
[2022-02-07] MEDS ORDERED: Sodium Chloride 0.9% 100 ML ONE (09:50)
[2022-02-07] MEDS ORDERED: CEFAZOLIN 2 GM VIAL ONE (09:50)
[2022-02-07] MEDS ORDERED: HYDROmorphone 2 MG/ML VIAL ONE (09:59)
[2022-02-07] MEDS ORDERED: Bupivacaine PF 0.5% 30 ML VIAL ONE (10:26)
[2022-02-07] MEDS ORDERED: Ketorolac Tromethamine 30 MG/ML VIAL ONE (10:26)
[2022-02-07] MEDS ORDERED: PROPOFOL 200 MG/20 ML VIAL ONE (10:26)
[2022-02-07] MEDS ORDERED: Lidocaine 1% PF 5 ML VIAL ONE ×2 (10:26)
[2022-02-07] MEDS ORDERED: Ondansetron PF 4 MG/2 ML Vial ONE ×3 (10:26→12:50)
[2022-02-07] MEDS ORDERED: Dexamethasone 20 MG/5 ML VIAL ONE (10:26)
[2022-02-07] MEDS ORDERED: Fentanyl 100 MCG/2 ML VIAL ONE ×3 (11:07→11:52)
[2022-02-07] MEDS ORDERED: HYDROcodone/Acetaminophen 5/325 mg Tablet ONE ×2 (12:37→13:37)
[2022-02-07] MEDS ORDERED: Metoclopramide HCl 10 MG/2 ML VIAL ONE (12:46)
[2022-02-07] MEDS ORDERED: Promethazine HCl 25 MG/ML VIAL ONE (13:58)
== END 2022-02-07 14:10 | disposition home or self-care (01) ==
LOC: SDC 06:48
PROVIDERS: ATTEND Orthopaedic Surgery
PROC: 0SBC4ZZ Excision of Right Knee Joint, Percutaneous Endoscopic Approach (ICD-10-PCS; principal; 2022-02-07)
DX: M23.341 Other meniscus derangements, anterior horn of lateral meniscus, right knee (principal); M23.361 Other meniscus derangements, other lateral meniscus, right knee; M65.88 Other synovitis and tenosynovitis, other site; M23.8X1 Other internal derangements of right knee; M22.41 Chondromalacia patellae, right knee; G89.29 Other chronic pain; M25.561 Pain in right knee; I10 Essential (primary) hypertension; E11.9 Type 2 diabetes mellitus without complications; Z87.891 Personal history of nicotine dependence; Z79.899 Other long term (current) drug therapy; Z88.1 Allergy status to other antibiotic agents; Z88.5 Allergy status to narcotic agent; Z88.6 Allergy status to analgesic agent; Z91.018 Allergy to other foods
CPT/HCPCS: J1170; J2405; J2550; J2765; J3010; J3490

== ENCOUNTER 2022-04-21 04:11 | Emergency (ER) | payer BC, OTHER ==
[2022-04-21] MEDS ORDERED: Dexamethasone 10 MG/ML VIAL ONE (04:43)
[2022-04-21] MEDS ORDERED: Ketorolac Tromethamine 30 MG/ML VIAL ONE (04:43)
[2022-04-21] MEDS ORDERED: Lidocaine Viscous Sol 2% 15 ml UD Cup ONE (07:16)
== END 2022-04-21 07:26 | disposition home or self-care (01) ==
LOC: ERS 04:11
DX: K12.2 Cellulitis and abscess of mouth (principal); F17.290 Nicotine dependence, other tobacco product, uncomplicated
CPT/HCPCS: 70360; 96372; J1100; J1885

== ENCOUNTER 2024-11-12 13:04 | Outpatient (CLI) | payer BC, OTHER | END 2024-11-12 13:05 | disposition home or self-care (01) | LOC: BICMRI 13:04 | PROVIDERS: ATTEND Orthopaedic Surgery | DX: S63.592A Other specified sprain of left wrist, initial encounter (principal); M77.8 Other enthesopathies, not elsewhere classified; S63.072A Subluxation of distal end of left ulna, initial encounter; M65.932 Unspecified synovitis and tenosynovitis, left forearm; M25.432 Effusion, left wrist ==

== ENCOUNTER 2025-02-03 07:59 | Day surgery (SDC) | payer BC ==
[2025-02-01 15:50] VITALS: BMI 40.7
[2025-02-03] MEDS ORDERED: Ropivacaine 0.2% HCl/PF 20 ML ONE (08:33)
[2025-02-03] MEDS ORDERED: Ropivacaine 0.5% HCl/PF (150 MG/30 ML VIAL) ONE (08:33)
[2025-02-03] MEDS ORDERED: PROPOFOL 20 ML ONE (09:18)
[2025-02-03] MEDS ORDERED: fentaNYL PF 100 MCG/2 ML SYRINGE ONE (09:18)
[2025-02-03] MEDS ORDERED: Rocuronium Bromide 10 MG/ML (10ML VIAL) ONE (09:18)
[2025-02-03] MEDS ORDERED: Lidocaine 1% PF 5 ML VIAL ONE (09:18)
[2025-02-03] MEDS ORDERED: SUCCINYLCHOLINE/SOD CL,ISO/PF 200 MG/10 ML SYRINGE FS ONE (09:18)
[2025-02-03] MEDS ORDERED: Ondansetron PF 4 MG/2 ML Vial ONE (09:22)
[2025-02-03] MEDS ORDERED: CEFAZOLIN 2 GM VIAL ONE (09:38)
[2025-02-03] MEDS ORDERED: CEFAZOLIN 1 GM VIAL ONE (10:08)
[2025-02-03] MEDS ORDERED: PHENYLEPHRINE-NS 100 MCG/ML 10 ML SYRINGE ONE (10:21)
[2025-02-03] MEDS ORDERED: NEOSTIGMINE 3 MG/3 ML SYRINGE ONE (11:13)
[2025-02-03] MEDS ORDERED: Glycopyrrolate 0.2 MG/ML 5 ML SYRINGE ONE (11:13)
== END 2025-02-03 14:15 | disposition home or self-care (01) ==
LOC: SDC 07:59
PROVIDERS: ATTEND Orthopaedic Surgery
PROC: 0MQ64ZZ Repair Left Wrist Bursa and Ligament, Percutaneous Endoscopic Approach (ICD-10-PCS; principal; 2025-02-03)
PROC: 0LB Tendons, Excision (ICD-10-PCS; principal; 2025-02-03)
PROC: 3E0T3BZ Introduction of Anesthetic Agent into Peripheral Nerves and Plexi, Percutaneous Approach (ICD-10-PCS; principal; 2025-02-03)
DX: S63.592A Other specified sprain of left wrist, initial encounter (principal); M65.932 Unspecified synovitis and tenosynovitis, left forearm; Z90.49 Acquired absence of other specified parts of digestive tract; Z90.710 Acquired absence of both cervix and uterus; Z88.6 Allergy status to analgesic agent; Z88.1 Allergy status to other antibiotic agents; Z91.048 Other nonmedicinal substance allergy status; X58.XXXA Exposure to other specified factors, initial encounter
CPT/HCPCS: J0690; J1100; J2250; J2405; J2704; J2795; J3010